=== PATIENT | male | born 1960 | race Caucasian/White ===

== ENCOUNTER 2019-04-08 14:28 | Inpatient (IN) | payer OTHER ==
[2019-04-08 15:17] VITALS: BMI 20.3
--- NOTE | 2019-04-08 16:16 | HP ---
CIWA Score - Admission Criteria [facility] Guidelines: Admission for Medically Managed Detox: Requires at least one of the followin. CIWA greater than 12 2. Seizures within the past 24 hours 3. Delirium tremens within the past 24 hours 4. Hallucinations within the past 24 hours 5. Acute intervention needed for co occurring medical disorder 6. Acute intervention needed for co occurring psychiatric disorder 7. Severe withdrawal that cannot be handled at a lower level of care (continued vomiting, continued diarrhea, abnormal vital signs) requiring intravenous medication and/or fluids 8. Admission ROS [facility] - [facility] Chief Complaint: rehab for crack Allergies/Adverse Reactions: Allergies Allergy/AdvReac Type Severity Reaction Status Date / Time No Known Allergies Allergy Verified 04/08/19 15:08 History of Present Illness: 58M w/ pmh of HIV(CD4 ~56, viral load 80k; seen at [facility]; taking Bactrim) presenting to [facility] for rehab from crack. Smokes $150 - 200 daily, for 1.5ys; started 2009. Last crack usage was early this morning. Denies hospitalizations related to crack. 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 Causal MJ usage. Rare EtOH usage. Smokes 1ppd. 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 Exam Limitations: No Limitations - Ebola screening Have you traveled outside of the country in the last 21 days: No (N) Have you had contact with anyone from an Ebola affected area: No Do you have a fever: No - Review of Systems Constitutional: Unintentional Wgt. Loss EENT: denies: Blurred Vision, Double Vision, Difficulty Swallowing Respiratory: denies: Cough, Wheezing Cardiac: denies: Chest Pain, Palpitations GI: denies: Constipated, Diarrhea, Poor Appetite, Vomiting, Indigestion : denies: Burning, Dysuria Musculoskeletal: denies: Gout, Joint Pain, Muscle Pain, Muscle Weakness Integumentary: denies: Bruising Neuro: denies: Headache, Dizziness Patient History - Patient Surgical History Hx Appendectomy: Yes - Smoking Cessation Smoking history: Current every day smoker Have you smoked in the past 12 months: Yes Aproximately how many cigarettes per day: 20 Initiated information on smoking cessation: No - Substances abused Crack Substance route: Smoking Frequency: Daily Amount used: $100 or more Age of first use: 48 Date of last use: 04/07/19 Marijuana/Hashish Substance route: Smoking Frequency: Daily Amount used: $10 Age of first use: 13 Date of last use: 03/25/19 Family Disease History - Family Disease History Family Disease History: Other: Mother (alcoholism) Admission Physical Exam [facility] - Vital Signs Vital Signs: Vital Signs - 24 hr 04/08/19 04/08/19 15:06 15:29 Temperature 98.3 F 98.3 F Pulse Rate 97 H 97 H Respiratory 18 18 Rate Blood Pressure 159/76 159/76 - Physical General Appearance: Yes: Cachetic, Other (temporal wasting). No: Irritable, Sweating HEENTM: No: Pale Conjunctivae R, Pale Conjunctivae L, Scleral Ictenus R, Scleral Ictenus L Respiratory: Yes: Lungs Clear, Normal Breath Sounds, No Accessory Muscle Use. No: Rhonchi, Wheezing Neck: Yes: Supple Cardiology: Yes: S1, S2. No: Murmur Abdominal: Yes: Non Tender, Soft. No: Rebound Musculoskeletal: Yes: full range of Motion Cleared for Admission [facility] - Detox or Rehab [facility] Level of Care: Medically Managed Claeared for Rehab Admission: Yes Breathalyzer - Breathalyzer Breathalyzer: 0 Urine Drug Screen - Test Device Lot number: [id number] Expiration date: 01/02/21 - Control Is test valid?: Yes - Results Drug screen NEGATIVE: Yes Urine drug screen results: BAKARI-Cocaine Inpatient Rehab Admission - Rehab Decision to Admit Inpatient rehab admission?: Yes - Initial Determination Are CD services needed?: No Free of communicable disease: Yes Not in need of hospitalization: Yes - Rehab Admission Criteria Previous failed treatment: Yes Poor recovery environment: Yes Comorbidities: Yes Lacks judgement: No Patient is meeting Inpatient Rehab admission criteria:: Yes
[2019-04-08] MEDS ORDERED: MAGNESIUM CITRATE 300 ML BOTTLE PO PRN (16:40)
[2019-04-08] MEDS ORDERED: ACETAMINOPHEN 325 MG TABLET (FP) PO PRN (16:40)
[2019-04-08] MEDS ORDERED: MENTHOL/PHENOL 1 EACH UD MM PRN (16:40)
[2019-04-08] MEDS ORDERED: P-EPHED 60MG/TRIPROLIDI 2.5MG TABLET PO PRN (16:40)
[2019-04-08] MEDS ORDERED: IBUPROFEN 400 MG TABLET (FP) PO PRN (16:40)
[2019-04-08] MEDS ORDERED: guaiFENesin 200 MG/10 ML 10 ML UNIT-DOSE CUPS PO PRN (16:40)
[2019-04-08] MEDS: THIAMINE HCL 100 MG TABLET (FP) PO SCH (22:03)
[2019-04-09] MEDS: NICOTINE 7 MG/24 HOURS TOPICAL PATCH TD SCH (10:56)
[2019-04-09] MEDS: LISINOPRIL 5 MG TABLET (FP) PO SCH (10:56)
[2019-04-09] MEDS: PRENATAL VITAMINS W/ FOLIC ACID TABLET (FP) PO SCH (10:56)
[2019-04-09] MEDS: DARUNAVIR/COB/EMTRI/TENOF (SYMTUZA) TABLET (NF) PO SCH (12:04)
[2019-04-09 12:07] LABS: HEMATOCRIT 44.6 % (35.4-49); HEMOGLOBIN 14.2 GM/dL (11.7-16.9); MCH 30.6 pg (25.7-33.7); MCHC 31.9 g/dl (32.0-35.9); MEAN CELL VOLUME 96.1 fl (80-96); MEAN PLT VOLUME 10.2 fl (7.5-11.1); PLATELET COUNT 141 K/MM3 (134-434); RBC 4.65 M/mm3 (4.00-5.60); RDW 14.4 % (11.9-15.9); WHITE BLOOD COUNT 8.3 K/mm3 (4.0-10.0)
[2019-04-09 12:21] LABS: ALBUMIN 2.6 g/dl (3.4-5.0); BILIRUBIN,TOTAL 0.2 mg/dL (0.2-1); CALCIUM 8.5 mg/dL (8.5-10.1); CREATININE 1.1 mg/dL (0.55-1.3); POTASSIUM 3.9 mmol/L (3.5-5.1); TOT PROT 6.8 g/dl (6.4-8.2)
--- NOTE | 2019-04-09 12:29 | EKG ---
Test Reason : Blood Pressure : / mmHG Vent. Rate : 089 BPM Atrial Rate : 089 BPM P-R Int : 128 ms QRS Dur : 086 ms QT Int : 358 ms P-R-T Axes : 073 070 000 degrees QTc Int : 435 ms NORMAL SINUS RHYTHM NONSPECIFIC T WAVE ABNORMALITY ABNORMAL ECG NO PREVIOUS ECGS AVAILABLE Confirmed by TIMOTHY MAHER, LORY ([id number]) on 04/09/2019 12:29:44 PM Referred By: Confirmed By:LORY AGUIRRE MD
[2019-04-09 14:53] LABS: EPI CELLS 5.2 /HPF (0-5/HPF); HYALINE CASTS 8 /lpf (0-8); URINE APPEARANCE CLEAR; URINE BACTERIA 41.3 /hpf (NEGATIVE); URINE BILIRUBIN NEGATIVE (NEGATIVE); URINE COLOR YELLOW; URINE GLUCOSE (UA) NEGATIVE (NEGATIVE); URINE KETONE NEGATIVE (NEGATIVE); URINE LEUK ESTERASE NEGATIVE (NEGATIVE); URINE NITRITE NEGATIVE (NEGATIVE); URINE PROTEIN 3+ (NEGATIVE); URINE RBC 1 /hpf (0-4); URINE UROBILINOGEN 0.2 mg/dL (0.2-1.0); URINE WBC 4 /hpf (0-5)
[2019-04-09] MEDS: MAG HYDROX/AL HYDROX/SIMETH 30 ML UNIT-DOSE CUP PO PRN (20:21)
[2019-04-09] MEDS: THIAMINE HCL 100 MG TABLET (FP) PO SCH (21:14)
[2019-04-09] MEDS: MELATONIN 5 MG TABLETS PO PRN (21:14)
[2019-04-10] MEDS: DARUNAVIR/COB/EMTRI/TENOF (SYMTUZA) TABLET (NF) PO SCH (08:06)
[2019-04-10] MEDS: PRENATAL VITAMINS W/ FOLIC ACID TABLET (FP) PO SCH (10:32)
[2019-04-10] MEDS: LISINOPRIL 5 MG TABLET (FP) PO SCH (10:32)
[2019-04-10] MEDS: NICOTINE 7 MG/24 HOURS TOPICAL PATCH TD SCH (10:34)
--- NOTE | 2019-04-10 11:07 | PN ---
[facility] Progress Note Note: Vital Signs Temperature 98.6 F 04/10/19 06:45 Pulse Rate 76 04/10/19 06:45 Respiratory Rate 18 04/10/19 06:45 Blood Pressure 160/59 L 04/10/19 06:45 O2 Sat by Pulse Oximetry (%) Laboratory Last Values WBC 8.3 K/mm3 (4.0-10.0) 04/09/19 09:00 RBC 4.65 M/mm3 (4.00-5.60) 04/09/19 09:00 Hgb 14.2 GM/dL (11.7-16.9) 04/09/19 09:00 Hct 44.6 % (35.4-49) 04/09/19 09:00 MCV 96.1 fl (80-96) H 04/09/19 09:00 MCH 30.6 pg (25.7-33.7) 04/09/19 09:00 MCHC 31.9 g/dl (32.0-35.9) L 04/09/19 09:00 RDW 14.4 % (11.9-15.9) 04/09/19 09:00 Plt Count 141 K/MM3 (134-434) 04/09/19 09:00 MPV 10.2 fl (7.5-11.1) 04/09/19 09:00 Sodium 146 mmol/L (136-145) H 04/09/19 09:00 Potassium 3.9 mmol/L (3.5-5.1) 04/09/19 09:00 Chloride 107 mmol/L (98-107) 04/09/19 09:00 Carbon Dioxide 30 mmol/L (21-32) 04/09/19 09:00 Anion Gap 9 MMOL/L (8-16) 04/09/19 09:00 BUN 14.0 mg/dL (7-18) 04/09/19 09:00 Creatinine 1.1 mg/dL (0.55-1.3) 04/09/19 09:00 Est GFR (CKD-EPI)AfAm 84.12 04/09/19 09:00 Est GFR (CKD-EPI)NonAf 72.58 04/09/19 09:00 Random Glucose 116 mg/dL (74-106) H 04/09/19 09:00 Calcium 8.5 mg/dL (8.5-10.1) 04/09/19 09:00 Total Bilirubin 0.2 mg/dL (0.2-1) 04/09/19 09:00 AST 26 U/L (15-37) 04/09/19 09:00 ALT 17 U/L (13-61) 04/09/19 09:00 Alkaline Phosphatase 115 U/L (45-117) 04/09/19 09:00 Total Protein 6.8 g/dl (6.4-8.2) 04/09/19 09:00 Albumin 2.6 g/dl (3.4-5.0) L 04/09/19 09:00 Urine Color Yellow 04/09/19 12:00 Urine Appearance Clear 04/09/19 12:00 Urine pH 6.0 (5.0-8.0) 04/09/19 12:00 Ur Specific [place] 1.023 (1.010-1.035) 04/09/19 12:00 Urine Protein 3+ (NEGATIVE) H 04/09/19 12:00 Urine Glucose (UA) Negative (NEGATIVE) 04/09/19 12:00 Urine Ketones Negative (NEGATIVE) 04/09/19 12:00 Urine Blood Negative (NEGATIVE) 04/09/19 12:00 Urine Nitrite Negative (NEGATIVE) 04/09/19 12:00 Urine Bilirubin Negative (NEGATIVE) 04/09/19 12:00 Urine Urobilinogen 0.2 mg/dL (0.2-1.0) 04/09/19 12:00 Ur Leukocyte Esterase Negative (NEGATIVE) 04/09/19 12:00 Urine WBC (Auto) 4 /hpf (0-5) 04/09/19 12:00 Urine RBC (Auto) 1 /hpf (0-4) 04/09/19 12:00 Urine Casts (Auto) 8 /lpf (0-8) 04/09/19 12:00 U Epithel Cells (Auto) 5.2 /HPF (0-5/HPF) 04/09/19 12:00 Urine Bacteria (Auto) 41.3 /hpf (NEGATIVE) 04/09/19 12:00 RPR Titer Nonreactive (NONREACTIVE) 04/09/19 09:00 Patient c/o of pain on the right upper thigh, new onset, report shooting pain relieved with rest worsen with movement, reports this never happen in the past. Denies paresthesia. Aox3 no acute distress full ROM ambulatory intact, no skin changes muscular pain robaxin prn gabapentin prn fall precautions increase fluids continue to monitor
[2019-04-10] MEDS: METHOCARBAMOL 500 MG TABLET PO SCH ×2 (12:33→23:16)
[2019-04-10] MEDS: MAGNESIUM HYDROX 2400MG/30ML ORAL SUSPENSION 30 ML CUP PO PRN (14:46)
[2019-04-10] MEDS: THIAMINE HCL 100 MG TABLET (FP) PO SCH (23:17)
[2019-04-11] MEDS: DARUNAVIR/COB/EMTRI/TENOF (SYMTUZA) TABLET (NF) PO SCH (08:02)
[2019-04-11] MEDS: PRENATAL VITAMINS W/ FOLIC ACID TABLET (FP) PO SCH (09:11)
[2019-04-11] MEDS: NICOTINE 7 MG/24 HOURS TOPICAL PATCH TD SCH (09:11)
[2019-04-11] MEDS: METHOCARBAMOL 500 MG TABLET PO SCH ×2 (09:11→22:02)
[2019-04-11] MEDS: LISINOPRIL 5 MG TABLET (FP) PO SCH (09:11)
[2019-04-11] MEDS: THIAMINE HCL 100 MG TABLET (FP) PO SCH (22:02)
[2019-04-12] MEDS: DARUNAVIR/COB/EMTRI/TENOF (SYMTUZA) TABLET (NF) PO SCH (08:04)
[2019-04-12] MEDS: LISINOPRIL 5 MG TABLET (FP) PO SCH (11:03)
[2019-04-12] MEDS: PRENATAL VITAMINS W/ FOLIC ACID TABLET (FP) PO SCH (11:03)
[2019-04-12] MEDS: METHOCARBAMOL 500 MG TABLET PO SCH ×2 (11:04→22:04)
[2019-04-12] MEDS: NICOTINE 7 MG/24 HOURS TOPICAL PATCH TD SCH (11:04)
[2019-04-12] MEDS: LOPERAMIDE HCL 2 MG CAPSULE PO PRN (15:02)
[2019-04-12] MEDS: THIAMINE HCL 100 MG TABLET (FP) PO SCH (22:04)
[2019-04-13] MEDS: GABAPENTIN 100 MG CAPSULE (FP) PO PRN (06:26)
[2019-04-13] MEDS: DARUNAVIR/COB/EMTRI/TENOF (SYMTUZA) TABLET (NF) PO SCH (07:12)
[2019-04-13] MEDS: PRENATAL VITAMINS W/ FOLIC ACID TABLET (FP) PO SCH (11:17)
[2019-04-13] MEDS: METHOCARBAMOL 500 MG TABLET PO SCH ×2 (11:17→21:57)
[2019-04-13] MEDS: NICOTINE 7 MG/24 HOURS TOPICAL PATCH TD SCH (11:18)
[2019-04-13] MEDS: LISINOPRIL 5 MG TABLET (FP) PO SCH (11:18)
[2019-04-13] MEDS ORDERED: COLLOIDAL OATMEAL 1 BAR EACH TP PRN (13:20)
--- NOTE | 2019-04-13 13:28 | PN ---
[facility] Progress Note Note: Pt was concerned about his HIV medications. Pt thinks he is on 2 HIV meds. Called pharmacy- pt is just on one combination med for HIV that hs is on here. Bactrim was ordered today. Pt noted to be itching- pt states it just started today. PE: Vital Signs - 24 hr 04/13/19 04/13/19 04/13/19 00:30 03:30 06:13 Temperature 98.9 F Pulse Rate 84 Respiratory 18 18 18 Rate Blood Pressure 126/52 L face- with a few red papular lesions on cheeks and noted to be itching over trunk and back and extr a/p: allergic dermatitis- d/w pt to stop his HIV meds and other his other meds to see if this will resolve. Pt does not want to stop meds "it is small rash". d /w pt our concerns re worsening allergy- with resp compromise. Pt will let us know if it gets worse. Bactrim renewed. Sarna lotion. Aveeno soap.
[2019-04-13] MEDS ORDERED: SULFAMETHOXAZOLE/TRIMETHOPRIM 800MG/160MG D.S. TABLET PO ONE (13:45)
[2019-04-13] MEDS: MAGNESIUM HYDROX 2400MG/30ML ORAL SUSPENSION 30 ML CUP PO PRN (13:52)
--- NOTE | 2019-04-13 19:19 | PN ---
Teaching Attending Note Name of Resident: Андрей Peace ATTENDING PHYSICIAN STATEMENT I saw and evaluated the patient. I reviewed the resident's note and discussed the case with the resident. I agree with the resident's findings and plan as documented. Pt seen and examined with resident on day of admission. This is a late note. SUBJECTIVE: 58M w/ pmh of HIV(CD4 ~56, viral load 80k; seen at [facility]; taking Bactrim) presenting to [facility] for rehab from crack. OBJECTIVE: stable VS alert and oriented ASSESSMENT AND PLAN: admit to rehab for cocaine use disorder
[2019-04-13] MEDS: THIAMINE HCL 100 MG TABLET (FP) PO SCH (21:57)
[2019-04-13] MEDS: MENTHOL/CAMPHOR 1 APPLIC BTL TP SCH (21:58)
[2019-04-13] MEDS: MELATONIN 5 MG TABLETS PO PRN (21:58)
[2019-04-14] MEDS: DARUNAVIR/COB/EMTRI/TENOF (SYMTUZA) TABLET (NF) PO SCH (09:51)
[2019-04-14] MEDS: MENTHOL/CAMPHOR 1 APPLIC BTL TP SCH (10:05)
[2019-04-14] MEDS: LISINOPRIL 5 MG TABLET (FP) PO SCH (10:50)
[2019-04-14] MEDS: METHOCARBAMOL 500 MG TABLET PO SCH ×2 (10:50→21:55)
[2019-04-14] MEDS: NICOTINE 7 MG/24 HOURS TOPICAL PATCH TD SCH (10:51)
[2019-04-14] MEDS: PRENATAL VITAMINS W/ FOLIC ACID TABLET (FP) PO SCH (10:51)
--- NOTE | 2019-04-14 12:13 | PN ---
[facility] Progress Note Note: c/o whitish coat on tongue. denies sore throat, coughing or runny nose. Pt was admitted yesterday 04/13/19 for alcohol and cocaine use disorder. Pt Vital Signs - 24 hr 04/14/19 04/14/19 04/14/19 00:30 03:30 06:52 Temperature 99.3 F Pulse Rate 90 Respiratory 18 18 18 Rate Blood Pressure 122/63 Laboratory Tests 04/09/19 04/09/19 04/09/19 09:00 09:00 09:00 WBC 8.3 RBC 4.65 Hgb 14.2 Hct 44.6 MCV 96.1 H MCH 30.6 MCHC 31.9 L RDW 14.4 Plt Count 141 MPV 10.2 Sodium 146 H Potassium 3.9 Chloride 107 Carbon Dioxide 30 Anion Gap 9 BUN 14.0 Creatinine 1.1 Est GFR (CKD-EPI)AfAm 84.12 Est GFR (CKD-EPI)NonAf 72.58 Random Glucose 116 H Calcium 8.5 Total Bilirubin 0.2 AST 26 ALT 17 Alkaline Phosphatase 115 Total Protein 6.8 Albumin 2.6 L Urine Color Urine Appearance Urine pH Ur Specific [place] Urine Protein Urine Glucose (UA) Urine Ketones Urine Blood Urine Nitrite Urine Bilirubin Urine Urobilinogen Ur Leukocyte Esterase Urine WBC (Auto) Urine RBC (Auto) Urine Casts (Auto) U Epithel Cells (Auto) Urine Bacteria (Auto) RPR Titer Nonreactive 04/09/19 12:00 WBC RBC Hgb Hct MCV MCH MCHC RDW Plt Count MPV Sodium Potassium Chloride Carbon Dioxide Anion Gap BUN Creatinine Est GFR (CKD-EPI)AfAm Est GFR (CKD-EPI)NonAf Random Glucose Calcium Total Bilirubin AST ALT Alkaline Phosphatase Total Protein Albumin Urine Color Yellow Urine Appearance Clear Urine pH 6.0 Ur Specific [place] 1.023 Urine Protein 3+ H Urine Glucose (UA) Negative Urine Ketones Negative Urine Blood Negative Urine Nitrite Negative Urine Bilirubin Negative Urine Urobilinogen 0.2 Ur Leukocyte Esterase Negative Urine WBC (Auto) 4 Urine RBC (Auto) 1 Urine Casts (Auto) 8 U Epithel Cells (Auto) 5.2 Urine Bacteria (Auto) 41.3 RPR Titer Alert o x 3 oob with steady gait nad oral exam:whitish coating to entire tongue, throat/pillars free of exudates, no redness or swelling noted. A/P oral thrush Hx HIV+ x 40 yrs Mycelex Joyce 10 mg po 5x/day x 7 days Re-evaluate pt's sx Increase po fluids
[2019-04-14] MEDS: MAG HYDROX/AL HYDROX/SIMETH 30 ML UNIT-DOSE CUP PO PRN (14:14)
[2019-04-14] MEDS: CLOTRIMAZOLE 10 MG TROCHE (FP) PO SCH ×3 (15:32→21:55)
[2019-04-14] MEDS: MELATONIN 5 MG TABLETS PO PRN (21:55)
[2019-04-14] MEDS: THIAMINE HCL 100 MG TABLET (FP) PO SCH (21:55)
[2019-04-15] MEDS: CLOTRIMAZOLE 10 MG TROCHE (FP) PO SCH ×5 (08:25→22:07)
[2019-04-15] MEDS: DARUNAVIR/COB/EMTRI/TENOF (SYMTUZA) TABLET (NF) PO SCH ×2 (08:25→10:57)
[2019-04-15] MEDS: PRENATAL VITAMINS W/ FOLIC ACID TABLET (FP) PO SCH (10:56)
[2019-04-15] MEDS: NICOTINE 7 MG/24 HOURS TOPICAL PATCH TD SCH (10:56)
[2019-04-15] MEDS: LISINOPRIL 5 MG TABLET (FP) PO SCH (10:56)
[2019-04-15] MEDS: METHOCARBAMOL 500 MG TABLET PO SCH ×2 (10:56→22:07)
[2019-04-15] MEDS: MENTHOL/CAMPHOR 1 APPLIC BTL TP SCH (10:58)
[2019-04-15] MEDS: THIAMINE HCL 100 MG TABLET (FP) PO SCH (22:07)
[2019-04-15] MEDS: MELATONIN 5 MG TABLETS PO PRN (22:07)
[2019-04-15] MEDS: GABAPENTIN 100 MG CAPSULE (FP) PO PRN (22:09)
[2019-04-16] MEDS: CLOTRIMAZOLE 10 MG TROCHE (FP) PO SCH ×5 (07:00→21:44)
[2019-04-16] MEDS: DARUNAVIR/COB/EMTRI/TENOF (SYMTUZA) TABLET (NF) PO SCH (08:06)
[2019-04-16] MEDS: PRENATAL VITAMINS W/ FOLIC ACID TABLET (FP) PO SCH (10:38)
[2019-04-16] MEDS: NICOTINE 7 MG/24 HOURS TOPICAL PATCH TD SCH (10:38)
[2019-04-16] MEDS: METHOCARBAMOL 500 MG TABLET PO SCH ×2 (10:38→21:44)
[2019-04-16] MEDS: LISINOPRIL 5 MG TABLET (FP) PO SCH (10:38)
[2019-04-16] MEDS: MENTHOL/CAMPHOR 1 APPLIC BTL TP SCH (10:39)
--- NOTE | 2019-04-16 10:47 | PN ---
[facility] Progress Note Note: Pt c/o facial rash. Vital Signs - 24 hr 04/16/19 04/16/19 03:30 07:32 Temperature 98.6 F Pulse Rate 81 Respiratory 18 18 Rate Blood Pressure 92/60 CXR result: No pathology Skin:Face with red macular rash on both cheek/nose areas. A/P dermatitis hx hiv+ Hytone ointment 1% apply as directed
[2019-04-16] MEDS: HYDROCORTISONE 1% TOPICAL OINT 30 GM TUBE TP SCH (11:41)
[2019-04-16] MEDS: THIAMINE HCL 100 MG TABLET (FP) PO SCH (21:42)
[2019-04-16] MEDS: MELATONIN 5 MG TABLETS PO PRN (21:44)
[2019-04-17] MEDS: CLOTRIMAZOLE 10 MG TROCHE (FP) PO SCH ×3 (07:00→14:00)
[2019-04-17] MEDS: DARUNAVIR/COB/EMTRI/TENOF (SYMTUZA) TABLET (NF) PO SCH (07:04)
[2019-04-17 07:26] VITALS: TEMP 98.4
[2019-04-17] MEDS: METHOCARBAMOL 500 MG TABLET PO SCH (10:42)
[2019-04-17] MEDS: MENTHOL/CAMPHOR 1 APPLIC BTL TP SCH (10:42)
[2019-04-17] MEDS: NICOTINE 7 MG/24 HOURS TOPICAL PATCH TD SCH (10:42)
[2019-04-17] MEDS: LISINOPRIL 5 MG TABLET (FP) PO SCH ×2 (10:42→10:47)
[2019-04-17] MEDS: PRENATAL VITAMINS W/ FOLIC ACID TABLET (FP) PO SCH (10:42)
[2019-04-17] MEDS: HYDROCORTISONE 1% TOPICAL OINT 30 GM TUBE TP SCH (10:43)
--- NOTE | 2019-04-17 13:23 | DS ---
[facility] Rehab Discharge Summary - [facility] Rehab Discharge Summary Admission Date: 04/08/19 Discharge Date: 04/17/19 - History Present History: Cannabis dependence, Cocaine dependence Additional Comments: Pt is a 58 y/o male with a hx of crack and marijuana use disorder admitted to rehab. Pt requesting an early discharge today due to personal reasons. Wants to follow up with securing his housing/property at [facility] housing or else will be kicked out. Pt met with his counselor, Ms Oneal Grullon and referred to CD aftercare at [facility]. Pertinent Past History: HIV+ HTN - Discharge Physical Exam Vital Signs: Vital Signs Temperature 98.4 F 04/17/19 07:26 Pulse Rate 86 04/17/19 07:26 Respiratory Rate 18 04/17/19 07:26 Blood Pressure 92/55 L 04/17/19 07:26 O2 Sat by Pulse Oximetry (%) Alert o x 3, Nad Heent:Normocephalic,roland,eomi,tongue 80% cleared of thrush. Cardiac:s1 s2,rrr Lungs:cta,torey. Abdomen:soft,+bs,nt,nd Extremities/Skin:No edema,Full ROM; skin intact, color good;facial rash resolved. Pertinent Admission Physical Exam Findings: Laboratory Tests 04/09/19 04/09/19 04/09/19 09:00 09:00 09:00 WBC 8.3 RBC 4.65 Hgb 14.2 Hct 44.6 MCV 96.1 H MCH 30.6 MCHC 31.9 L RDW 14.4 Plt Count 141 MPV 10.2 Sodium 146 H Potassium 3.9 Chloride 107 Carbon Dioxide 30 Anion Gap 9 BUN 14.0 Creatinine 1.1 Est GFR (CKD-EPI)AfAm 84.12 Est GFR (CKD-EPI)NonAf 72.58 Random Glucose 116 H Calcium 8.5 Total Bilirubin 0.2 AST 26 ALT 17 Alkaline Phosphatase 115 Total Protein 6.8 Albumin 2.6 L Urine Color Urine Appearance Urine pH Ur Specific [place] Urine Protein Urine Glucose (UA) Urine Ketones Urine Blood Urine Nitrite Urine Bilirubin Urine Urobilinogen Ur Leukocyte Esterase Urine WBC (Auto) Urine RBC (Auto) Urine Casts (Auto) U Epithel Cells (Auto) Urine Bacteria (Auto) RPR Titer Nonreactive 04/09/19 12:00 WBC RBC Hgb Hct MCV MCH MCHC RDW Plt Count MPV Sodium Potassium Chloride Carbon Dioxide Anion Gap BUN Creatinine Est GFR (CKD-EPI)AfAm Est GFR (CKD-EPI)NonAf Random Glucose Calcium Total Bilirubin AST ALT Alkaline Phosphatase Total Protein Albumin Urine Color Yellow Urine Appearance Clear Urine pH 6.0 Ur Specific [place] 1.023 Urine Protein 3+ H Urine Glucose (UA) Negative Urine Ketones Negative Urine Blood Negative Urine Nitrite Negative Urine Bilirubin Negative Urine Urobilinogen 0.2 Ur Leukocyte Esterase Negative Urine WBC (Auto) 4 Urine RBC (Auto) 1 Urine Casts (Auto) 8 U Epithel Cells (Auto) 5.2 Urine Bacteria (Auto) 41.3 RPR Titer - Treatment Discharge Condition: Discharge condition good Hospital Course: Rehabilitated safely and responded well Accepted aftercare referral - Medication Discharge Medications: Ambulatory Orders Darunavir/Cob/Emtri/Tenof Alaf [Symtuza [id number] mg Tab] 1 each PO DAILY 04/08/19 Lisinopril 5 mg PO DAILY 04/08/19 Clotrimazole [Mycelex -] 10 mg PO 5XD 7 Days #35 tung 04/17/19 - Medication-Assisted Treatment (MAT) Medication-Assisted Treatment (MAT): No - Discharge Instructions Diet, activity, other medical instructions: Diet: Activity: Other medical instructions:Follow up with primary care at [facility] Follow up with CD aftercare with [facility]. Pt reminded to fern picker his refill antiretroviral meds from his home pharmacy as well as courtesy rx of mycelex tung #14 to complete therapy for oral thrush. - Diagnosis (1) Facial rash Status: Acute (2) Oral thrush Status: Acute (3) HIV (human immunodeficiency virus infection) Status: Chronic (4) HTN (hypertension) Status: Chronic Qualifiers: Hypertension type: unspecified Qualified Code(s): I10 - Essential (primary ) hypertension (5) Dermatitis Status: Chronic - Follow-up Referral Minutes to complete discharge: 20 - AMA Did Patient Leave Against Medical Advice: No
[2019-04-17] MEDS: LOPERAMIDE HCL 2 MG CAPSULE PO PRN (13:59)
[2019-04-17 16:08] VITALS: BP 107/58; PULSE 90
== END 2019-04-17 14:45 | disposition home or self-care (01) | DRG 772 ==
LOC: YASAS 14:28 → Y5N 16:50
PROVIDERS: ADMIT Neuromusculoskeletal Medicine & OMM; ATTEND Neuromusculoskeletal Medicine & OMM
PROC: HZ42ZZZ Group Counseling for Substance Abuse Treatment, Cognitive-Behavioral (ICD-10-PCS; principal; 2019-04-08)
DX: F14.20 Cocaine dependence, uncomplicated (principal); F12.20 Cannabis dependence, uncomplicated; F17.210 Nicotine dependence, cigarettes, uncomplicated; B20 Human immunodeficiency virus [HIV] disease; B37.0 Candidal stomatitis; L30.8 Other specified dermatitis
CPT/HCPCS: 36415; 80053; 81003; 85027; 86593; 93005; 93010